=== PATIENT | male | born 1965 | race Caucasian/White ===

== ENCOUNTER 2018-02-11 16:42 | Emergency (ER) | payer MEDICAID ==
[~2018-02-11] VITALS: Ht 175.2 cm; Wt 88.5 kg
[2018-02-11] MEDS ORDERED: PREDNISONE20 M1 PO (17:14)
== END 2018-02-11 18:01 | disposition home or self-care (01) ==
LOC: ED 16:42
DX: G89.29 Other chronic pain (principal); M54.30 Sciatica, unspecified side; M25.561 Pain in right knee; M25.511 Pain in right shoulder